=== PATIENT | male | born 1990 | race Caucasian/White ===

== ENCOUNTER 2018-09-27 11:40 | Emergency (ER) | payer MEDICAID ==
[~2018-09-27] VITALS: Ht 177.8 cm; Wt 56.8 kg
[~2018-09-27 11:40] MED LIST: FLO0.4C PO; KETO10TA2 PO
[2018-09-27] MEDS ORDERED: HYDROcodone/acetaminophen 10/325mg tab PO ONE (12:10)
[2018-09-27] MEDS ORDERED: ketorolac trometh inj. 60 MG/2 ML VIAL IM ONE (12:10)
[2018-09-27] MEDS ORDERED: orphenadrine citrate 60mg/2ml inj. IM ONE (12:10)
[2018-09-27] MEDS ORDERED: HYDR-4353 PO (12:27)
[2018-09-27] MEDS ORDERED: IBUP-1986 PO (12:27)
[2018-09-27] MEDS ORDERED: ORPH100T2 PO (12:27)
[2018-09-27 12:40] VITALS: BP 130/86
== END 2018-09-27 12:41 | disposition home or self-care (01) ==
LOC: ER 11:40
DX: M89.8X8 Other specified disorders of bone, other site (principal); Z79.899 Other long term (current) drug therapy
CPT/HCPCS: 71101; 96372; 99283; J1885; J2360

== ENCOUNTER 2018-11-09 22:13 | Emergency (ER) | payer MEDICAID ==
[~2018-11-09] VITALS: Ht 175.3 cm; Wt 56.4 kg
[~2018-11-09 22:13] MED LIST changes: +IBUP-1986 PO; +ORPH100T2 PO
[2018-11-09 22:16] VITALS: BP 140/108
[2018-11-09 22:44] LABS: BASOPHILS # (AUTO) 0.1 X10'3 (0-0.2); BASOPHILS % (AUTO) 0.6 % (0-1); EOSINOPHILS # (AUTO) 0.1 X10'3 (0-0.9); EOSINOPHILS % (AUTO) 1.5 % (0-6); HEMATOCRIT 48.5 % (42.0-52.0); HEMOGLOBIN 16.4 g/dl (14.0-17.9); LYMPHOCYTES # (AUTO) 1.9 X10'3 (1.1-4.8); LYMPHOCYTES % (AUTO) 20.5 % (21-51); MEAN CORPUSCULAR HGB CONC 33.9 g/dL (33.0-36.5); MEAN CORPUSCULAR VOLUME 97.2 FL (78-98); MEAN PLATELET VOLUME 8.1 FL (7.4-10.4); MONOCYTES # (AUTO) 0.7 X10'3 (0-0.9); MONOCYTES % (AUTO) 7.4 % (2-12); NEUTROPHILS # (AUTO) 6.6 X10'3 (1.8-7.7); PLATELET COUNT 380 X10'3 (140-440); RED BLOOD COUNT 4.99 X10'6 (4.70-6.10); RED CELL DISTRIBUTION WIDTH 12.8 % (11.5-14.5); WHITE BLOOD COUNT 9.4 X10'3 (4.5-11.0)
[2018-11-09 22:51] LABS: ALANINE AMINOTRANSFERASE 31 U/L (12-78); ALBUMIN/GLOBULIN RATIO 1.4 (1.1-1.5); ANION GAP 10 (8-16); ASPARTATE AMINO TRANSFERASE 17 U/L (10-37); BILIRUBIN,TOTAL 0.4 MG/DL (0.1-1.0); BLOOD UREA NITROGEN 17 MG/DL (7-18); BUN/CREATININE RATIO 14.2 (5.4-32.0); CALCIUM 9.9 MG/DL (8.5-10.1); CHLORIDE 105 MMOL/L (99-107); GLUCOSE 110 MG/DL (70-104); POTASSIUM 4.1 MMOL/L (3.5-5.1); SODIUM 143 MMOL/L (135-145); TOTAL CARBON DIOXIDE 27.7 MMOL/L (24-32); TOTAL PROTEIN 8.6 G/DL (6.4-8.2); eGFR 72 ML/MIN
[2018-11-09 22:54] LABS: ALKALINE PHOSPHATASE 68 IU/L (46-116)
[2018-11-09 23:27] LABS: CLARITY,URINE CLEAR (Clear); COLOR,URINE YELLOW (Yellow); GLUCOSE, URINE NEGATIVE (Neg); KETONES,URINE NEGATIVE (Neg); LEUKOCYTE ESTERASE ,URINE NEGATIVE (Neg); NITRITES, URINE NEGATIVE (Neg); OCCULT BLOOD,URINE NEGATIVE (Neg); PH,URINE 5.5 (4.8-8.0); PROTEIN,URINE NEGATIVE (Neg); UROBILINOGEN,URINE 0.2 E.U/dL (0.2-1.0)
[2018-11-09] MEDS ORDERED: LIDOcaine Viscous 15ml cup MM STA (23:31)
[2018-11-09 23:35] LABS: UA COLLECTION TYPE VOIDED
[2018-11-09] MEDS ORDERED: ondansetron/PF 4mg/2ml inj IV ONE (23:35)
[2018-11-09] MEDS ORDERED: mag hydrox/Alum hydrox/simeth 30ml oral suspension PO ONE (23:35)
[2018-11-09] MEDS ORDERED: normal saline 1000ML IV soln IVB ONE (23:35)
[2018-11-09] MEDS ORDERED: diphenhydrAMINE 25 MG/10 ML UD oral solution PO ONE (23:35)
[2018-11-10] MEDS ORDERED: ONDA4TAB6 PO (00:49)
[2018-11-10] MEDS ORDERED: PANT20TA3 PO (00:49)
== END 2018-11-10 01:06 | disposition home or self-care (01) ==
LOC: ER 22:14
DX: R04.2 Hemoptysis (principal); R11.2 Nausea with vomiting, unspecified; R10.31 Right lower quadrant pain; R10.32 Left lower quadrant pain; F12.90 Cannabis use, unspecified, uncomplicated; Z79.899 Other long term (current) drug therapy
CPT/HCPCS: 36415; 80053; 81003; 85025; 96361; 96374; 99283; J2405; J7030; Q0163